=== PATIENT | female | born 1940 | race Caucasian/White ===

== ENCOUNTER 2016-08-11 07:33 | Day surgery (SDC) | payer MEDICARE ==
[~2016-08-11 07:33] MED LIST: ACETAMINOPHEN 325 MG TABLET PO PRN; ACETYLCHOLINE CHLORIDE 20 DROP KIT IO PRN; BUPIVACAINE HCL/PF 30 ML VIAL IJ PRN; CYCLOPENTOLATE HCL 20 DROP BTL RIGHTEYE PRN; DEXTROSE 5%-0.5 NORMAL SALINE 1,000 ML IV PRN; EPINEPHrine 1 MG/ML AMPUL IO PRN; HYALURONATE SODIUM 0.4 ML DISP.SYRIN IO PRN; HYALURONATE SODIUM 0.85 ML DISP.SYRIN IO PRN; LIDOCAINE HCL/PF 200 MG/5 ML AMPUL TP PRN; LIDOCAINE HCL/PF 5 ML VIAL IO PRN; NORMAL SALINE 3 ML BOX IV PRN; PHENYLEPHRINE HCL 50 DROP BTL RIGHTEYE PRN; TETRACAINE HCL 150 DROP BTL OP PRN; TROPICAMIDE 150 DROP BTL RIGHTEYE PRN
== END 2016-08-11 07:34 | disposition home or self-care (01) ==
LOC: AMB 07:33
PROVIDERS: ATTEND Ophthalmology
DX: Z53.9 Procedure and treatment not carried out, unspecified reason (principal)

== ENCOUNTER 2016-08-25 08:54 | Day surgery (SDC) | payer MEDICARE ==
[~2016-08-25 08:54] MED LIST changes: -PHENYLEPHRINE HCL 50 DROP BTL RIGHTEYE PRN; -TROPICAMIDE 150 DROP BTL RIGHTEYE PRN
[2016-08-25] MEDS: TROPICAMIDE 150 DROP BTL RIGHTEYE PRN ×3 (09:25→10:01)
[2016-08-25] MEDS: PHENYLEPHRINE HCL 50 DROP BTL RIGHTEYE PRN ×3 (09:25→10:01)
[2016-08-25 12:12] VITALS: BP 98/49
== END 2016-08-25 08:55 | disposition home or self-care (01) ==
LOC: AMB 08:54
PROVIDERS: ATTEND Ophthalmology
PROC: 08RJ3JZ Replacement of Right Lens with Synthetic Substitute, Percutaneous Approach (ICD-10-PCS; principal; 2016-08-25 10:00)
DX: H26.9 Unspecified cataract (principal); I10 Essential (primary) hypertension; E03.9 Hypothyroidism, unspecified

== ENCOUNTER 2016-09-22 10:15 | Day surgery (SDC) | payer MEDICARE ==
[~2016-09-22 10:15] MED LIST changes: +CYCLOPENTOLATE HCL 20 DROP BTL LEFTEYE PRN; -CYCLOPENTOLATE HCL 20 DROP BTL RIGHTEYE PRN
[2016-09-22] MEDS: TROPICAMIDE 150 DROP BTL LEFTEYE PRN ×3 (10:33→10:56)
[2016-09-22] MEDS: PHENYLEPHRINE HCL 50 DROP BTL LEFTEYE PRN ×3 (10:33→10:55)
[2016-09-22] MEDS ORDERED: DEXTROSE 5%-0.5 NORMAL SALINE 1,000 ML IV ONE (10:53)
[2016-09-22] MEDS ORDERED: HYALURONATE SODIUM 0.85 ML DISP.SYRIN IO ONE (13:02)
[2016-09-22] MEDS ORDERED: EPINEPHrine 1 MG/ML AMPUL IR ONE (13:02)
[2016-09-22] MEDS ORDERED: LIDOCAINE HCL/PF 200 MG/5 ML AMPUL TP ONE (13:03)
[2016-09-22] MEDS ORDERED: LIDOCAINE HCL/PF 5 ML VIAL IJ ONE (13:04)
[2016-09-22] MEDS ORDERED: ACETYLCHOLINE CHLORIDE 20 DROP KIT IO ONE (13:04)
[2016-09-22 14:31] VITALS: BP 134/63
== END 2016-09-22 10:16 | disposition home or self-care (01) ==
LOC: AMB 10:15
PROVIDERS: ATTEND Ophthalmology
PROC: 08RK3JZ Replacement of Left Lens with Synthetic Substitute, Percutaneous Approach (ICD-10-PCS; principal; 2016-09-22 11:25)
DX: H26.9 Unspecified cataract (principal); I10 Essential (primary) hypertension; I25.10 Atherosclerotic heart disease of native coronary artery without angina pectoris; K21.9 Gastro-esophageal reflux disease without esophagitis; E78.5 Hyperlipidemia, unspecified; E03.9 Hypothyroidism, unspecified; E05.00 Thyrotoxicosis with diffuse goiter without thyrotoxic crisis or storm; M19.90 Unspecified osteoarthritis, unspecified site; Z68.23 Body mass index [BMI] 23.0-23.9, adult